=== PATIENT | female | born 1945 | race Caucasian/White ===

== ENCOUNTER 2023-10-07 17:49 | Emergency (ER) | payer MEDICARE, OTHER | END 2023-10-07 22:50 | disposition home or self-care (01) | LOC: ERS 17:49 | DX: S32.051A Stable burst fracture of fifth lumbar vertebra, initial encounter for closed fracture (principal); S32.011A Stable burst fracture of first lumbar vertebra, initial encounter for closed fracture; S32.041A Stable burst fracture of fourth lumbar vertebra, initial encounter for closed fracture; I48.91 Unspecified atrial fibrillation; I10 Essential (primary) hypertension; I25.2 Old myocardial infarction; X58.XXXA Exposure to other specified factors, initial encounter | CPT/HCPCS: 72100 ==